=== PATIENT | female | born 1975 | race Caucasian/White ===

== ENCOUNTER 2018-07-05 23:54 | Inpatient (IN) | payer OTHER ==
--- NOTE | 2018-07-06 00:02 | EDPHY ---
H & P Time Seen by Provider: 07/06/18 00:02 HPI/ROS: HPI CHIEF COMPLAINT: Found down. HISTORY OF PRESENT ILLNESS: This is a 43-year-old female, she arrives to the emergency room by EMS after being found down at a local concert venue. Patient was in the bathroom and found down unresponsive. She had sats in the 70s. She was bagged with a nasal trumpet in place. She arrives to the emergency room minimally responsive, breathing, however upon arrival to the ER she slowly awakens. However unable to obtain history from her. Her sats are in the low 80s. She was placed on a non-rebreather. Heart rate is 109. It Is unclear exactly what happened. It Is reported by EMS that she has a history of Parkinson's like syndrome, PE. Past Medical History:Parkinson's Syndrome, PE Past Surgical History: No recent surgical history Social History: Unknown Family History: Unknown ROS REVIEW OF SYSTEMS: Limited due to patient's clinical presentation Exam Constitutional unresponsive, triage nursing summary reviewed, vital signs reviewed Eyes normal conjunctivae and sclera, EOMI, PERRLA. HENT normal inspection, atraumatic, moist mucus membranes, no epistaxis, neck supple/ no meningismus, no raccoon eyes. Respiratory clear to auscultation bilaterally, normal breath sounds, no respiratory distress, no wheezing. Cardiovascular rate normal, regular rhythm, no murmur, no edema, distal pulses normal. Gastrointestinal soft, non-tender, no rebound, no guarding, normal bowel sounds, no distension, no pulsatile mass. Genitourinary no CVA tenderness. Musculoskeletal no midline vertebral tenderness, full range of motion, no calf swelling, no tenderness of extremities, no meningismus, good pulses, neurovascularly intact. Skin pink, warm, & dry, no rash, skin atraumatic. Neurologic unresponsive, breathing. Differential Diagnosis: Includes but is not limited to in a particular order pulmonary embolism, intracranial bleed, CVA, seizure, drug intoxication, alcohol intoxication, cardiac arrhythmia Medical Decision Making: Plan for this patient IV establishment IV fluid bolus , CT scan head without contrast CT cervical spine without contrast, basic labs, EKG, troponin. Re-evaluation: EKG interpretation by me on record in [facility] system. Impression time of EKG 0008: Sinus tachycardia rate of 106, no signs of acute ischemia, no signs of WPW or Brugada. QTc interval noted 442. Chest x-ray one view. No evidence of focal pneumonia. No evidence of pneumothorax image interpreted by myself. Trop 0.00 Patient's D-dimer 15. Patient's lactic acid is 5. Given the elevation D-dimer and found down it is possible she had a PE leading to syncope. Will proceed with CT angiogram of the chest. CT scan head without contrast CT cervical spine without contrast faxed me by direct Radiology shows no acute intracranial abnormality the CT cervical spine is motion artifact limited however no gross acute cervical spine abnormality Plan for CT scan angiogram of the chest for positive D-dimer and syncope. Plan for CT scan abdomen pelvis with IV contrast of the abdomen due to bloody stool. 1:02 a.m. patient started developing bloody diarrhea. Patient has been typed and screen. IV Protonix ordered. 3rd L of IV fluid. Will admit to the ICU. CT angiogram of the chest and abdomen pelvis with IV contrast obtained. This shows a pulmonary embolus thrombus in the right lower segment pulmonary arteries no CT evidence of right heart strain No acute abnormality within the abdomen and pelvis No acute fracture dislocation There is a fluid-filled rectum and sigmoid colon which can be seen with infectious or inflammatory etiology enteritis Neck can be mom and circumferential wall prominence of the colon which may be exaggerated due to underdistention I spoke with the hospitalist service at 2:[address] David, he agrees to admit the patient to the ICU for GI bleed, hypertension, PE. The patient has a PE on the CT angiogram of the chest. We are unable to intake coagulated this time due to the bright red blood per rectum. Additionally will consult Gastroenterology IV Protonix as been ordered Type and screen. Lactic acid is trended down. 2:17 a.m. patient's blood pressure improved. Plan for hospital admission to the ICU for close monitoring. It is still somewhat unclear what happened there she was found down unresponsive. Brought to the emergency room noted be hypotensive tachycardic this has improved. Also found to have bright red blood per rectum watery bright red blood. Dr. Arenas consulted. Agrees on current plan. Will admit to ICU. Will consult. Critical Care: Total Critical Care Time Spent Managing this Patient: 85 Minutes. This time was spent Exclusively with this patient. This Care was exclusive of procedures. The Organ System/life at risk was pulmonary embolism, GI bleed, hypotension This Patient was in Critical Condition because pulmonary embolism, GI bleed, hypotension Source: Patient, EMS Constitutional: Initial Vital Signs Temperature (C) 36.6 C 07/06/18 00:00 Heart Rate 115 H 07/06/18 00:00 Respiratory Rate 16 07/06/18 00:00 Blood Pressure 76/54 L 07/06/18 00:00 O2 Sat (%) 81 L 07/06/18 00:00 O2 Delivery Mode Nasal Cannula O2 (L/minute) 2 Allergies/Adverse Reactions: No Known Allergies Allergy (Unverified 07/06/18 00:07) Home Medications: Medication Instructions Recorded Albuterol Sulfate [Albuterol 1 - 2 puffs IH Q4 PRN 07/06/18 Sulfate Hfa] Fluticasone Nasal [Flonase Nasal 1 sprays NASAL DAILY PRN 07/06/18 [place] (RX)] Propranolol HCl [Propranolol HCl 180 mg PO DAILY 07/06/18 ER] clonazePAM [Clonazepam] 2 mg PO BID 07/06/18 Medical Decision Making - Data Points Laboratory Results: Laboratory Results 07/06/18 01:45 07/06/18 00:00 07/06/18 00:00 Smear Review By Serafin OLIVEIRA MD Medications Given: Acetaminophen (Tylenol) 650 mg PO Q4HRS PRN PRN Reason: Pain, Mild/Fever, Can Take PO Stop: 01/02/19 02:15 Last Admin: 07/06/18 21:06 Dose: 650 mg Clonazepam (Klonopin) 2 mg PO BID [facility] Stop: 01/03/19 11:29 Last Admin: 07/07/18 12:05 Dose: 2 mg Heparin Sodium (Porcine) (Heparin 50 Units/Ml (Premix)) 500 mls @ 0 mls/hr IV CONT BERNARDO; Per Protocol PRN Reason: Protocol Stop: 01/02/19 16:14 Last Admin: 07/07/18 09:47 Dose: 500 mls Pantoprazole Sodium (Protonix) 40 mg IVP BID BERNARDO Stop: 01/02/19 08:59 Last Admin: 07/07/18 08:10 Dose: 40 mg Propranolol HCl (Inderal La) 180 mg PO DAILY [facility] Stop: 01/03/19 11:14 Last Admin: 07/07/18 12:05 Dose: 180 mg Vancomycin HCl (Vancomycin Oral Liquid) 125 mg PO QID BERNARDO PRN Reason: Protocol Stop: 08/05/18 15:59 Last Admin: 07/07/18 12:05 Dose: 125 mg Discontinued Medications Heparin Sodium (Porcine) (Heparin Injection) 0 unit IVP ONCE ONE Stop: 07/06/18 16:08 Last Admin: 07/06/18 16:52 Dose: 3,400 units Sodium Chloride (Ns) 1,000 mls @ 0 mls/hr IV EDNOW ONE; Wide Open PRN Reason: Protocol Stop: 07/06/18 00:01 Last Admin: 07/06/18 00:00 Dose: 1,000 mls Sodium Chloride (Ns) 1,000 mls @ 0 mls/hr IV ONCE ONE PRN Reason: Wide Open Stop: 07/06/18 00:32 Last Admin: 07/06/18 00:32 Dose: 1,000 mls Sodium Chloride (Ns) 1,000 mls @ 0 mls/hr IV ONCE ONE PRN Reason: Wide Open Stop: 07/06/18 01:02 Last Admin: 07/06/18 01:15 Dose: 1,000 mls Lactated Ringer's (Lr) 1,000 mls @ 125 mls/hr IV CONT BERNARDO Stop: 01/02/19 03:29 Last Admin: 07/06/18 12:19 Dose: 1,000 mls Ondansetron HCl (Zofran) 4 mg IVP EDNOW ONE Stop: 07/06/18 02:05 Last Admin: 07/06/18 02:07 Dose: 4 mg Pantoprazole Sodium (Protonix) 80 mg IVP EDNOW ONE Stop: 07/06/18 01:02 Last Admin: 07/06/18 01:20 Dose: 80 mg Potassium Chloride (Klor-Con) 20 meq PO ONCE ONE Stop: 07/07/18 07:08 Last Admin: 07/07/18 08:09 Dose: 20 meq Point of Care Test Results: Chemistry 07/06/18 07/06/18 00:08 00:07 POC Glucose 160 mg/dL H mg/dL (70-100) POC Troponin I 0.00 ng/mL ng/mL (0.00-0.08) Departure - Departure Disposition: [facility] Acute Clinical Impression: Elevated lipase Hypotension Qualifiers: Hypotension type: unspecified hypotension type Qualified Code(s): I95.9 - Hypotension, unspecified Pulmonary emboli Qualifiers: Pulmonary embolism type: unspecified Chronicity: acute Acute cor pulmonale presence: without acute cor pulmonale Qualified Code(s): I26.99 - Other pulmonary embolism without acute cor pulmonale GIB (gastrointestinal bleeding) Qualifiers: GI bleed type/associated pathology: melena Qualified Code(s): K92.1 - Melena Condition: Critical
[2018-07-06] MEDS ORDERED: NS 1,000 ML IV ONE ×3 (00:31→01:01)
[2018-07-06 00:32] LABS: INR 1.06 (0.83-1.16); PROTIME(PATIENT) 13.4 SEC (12.0-15.0)
[2018-07-06 00:37] LABS: PLATELET COUNT 223 10^3/uL (150-400)
[2018-07-06] MEDS ORDERED: IOPAMIDOL (ISOVUE 370) 100 ML BTL IV ONE ×2 (00:55→01:19)
[2018-07-06] MEDS ORDERED: PANTOPRAZOLE SODIUM 40 MG VIAL IVP ONE (01:01)
[2018-07-06] MEDS ORDERED: ONDANSETRON 4 MG/2 ML VIAL IVP ONE (02:04)
[2018-07-06 02:05] LABS: PLATELET COUNT 139 10^3/uL (150-400)
[2018-07-06] MEDS ORDERED: ONDANSETRON 4 MG/2 ML VIAL ONE (02:05)
[2018-07-06] MEDS ORDERED: ONDANSETRON DISINTEGRATING 4 MG TAB PO PRN (02:16)
[2018-07-06] MEDS ORDERED: ONDANSETRON 4 MG/2 ML VIAL IVP PRN (02:16)
--- NOTE | 2018-07-06 03:05 | PDGENHP ---
History and Physical - Chief Complaint Found down - History of Present Illness 43 yo F w/ hx of movement d/o NOS and PE in 2014 presents via EMS after being found down. The patient is able to tell me she was at a concert for her daughter and she recalls not feeling well. She is quite confused at the moment and unable to provide additional details. She does not recall how she arrived at the ER. Per report, she was found down in the bathroom at the concert venue with O2 sats in the 70s. She was brought into the ED minimally responsive being bagged by EMS with a nasal trumpet in place. She was also hypotensive on arrival. With 3 L IVF her blood pressure and respiratory status improved. She was noted to have moderate amount of bloody diarrhea in the ED. During my evaluation the patient is confused but with HR in the 80s, O2 sats in the high 90s on 2 L O2, and with normal BP. She is experiencing diffuse abdominal pain and nausea. Her imaging is notable for segmental PE in the RLL. Additional CT evaluation of head, C-spine, as well as abdomen and pelvis are mostly unremarkable aside from fluid filled rectum and sigmoid colon. I discussed the case with ED physician Dr. Riley; patient will be admitted to the ICU. History Information - Allergies/Home Medication List Allergies/Adverse Reactions: No Known Allergies Allergy (Unverified 07/06/18 00:07) Home Medications: Unobtainable 07/06/18 [Last Taken Unknown] I have personally reviewed and updated: family history, medical history - Past Medical History pulmonary embolism Additional medical history: Movement d/o NOS - Surgical History Additional surgical history: Endometrial ablation. Hemorrhoid surgery - Family History Positive for: cancer - Social History Smoking Status: Never smoked Review of Systems Review of Systems: ROS: 10pt was reviewed & negative except for what was stated in HPI & below Physical Exam Physical Exam: Temp Pulse Resp BP Pulse Ox 36.4 C 78 18 112/81 H 99 07/06/18 02:22 07/06/18 02:22 07/06/18 02:22 07/06/18 02:22 07/06/18 02:22 O2 (L/minute) 2 Constitutional: obese, uncomfortable Eyes: PERRL, EOMI Ears, Nose, Mouth, Throat: moist mucous membranes, no oral mucosal ulcers Cardiovascular: regular rate and rhythym, no murmur, rub, or gallop Respiratory: no respiratory distress, clear to auscultation Gastrointestinal: tenderness (Diffuse), No guarding, No rebound, No distension Skin: warm, normal color Neurologic: CN II-XII Intact, other (A&Ox2) Psychiatric: encephalopathic, poor memory Lab Data & Imaging Review 07/06/18 01:45 07/06/18 00:00 WBC 12.38 10^3/uL (3.80-9.50) H 07/06/18 01:45 RBC 3.93 10^6/uL (4.18-5.33) L 07/06/18 01:45 Hgb 12.5 g/dL (12.6-16.3) L 07/06/18 01:45 Hct 36.2 % (38.0-47.0) L 07/06/18 01:45 MCV 92.1 fL (81.5-99.8) 07/06/18 01:45 MCH 31.8 pg (27.9-34.1) 07/06/18 01:45 MCHC 34.5 g/dL (32.4-36.7) 07/06/18 01:45 RDW 13.5 % (11.5-15.2) 07/06/18 01:45 Plt Count 139 10^3/uL (150-400) L 07/06/18 01:45 MPV 12.1 fL (8.7-11.7) H 07/06/18 01:45 Neut % (Auto) 71.7 % (39.3-74.2) 07/06/18 01:45 Lymph % (Auto) 24.6 % (15.0-45.0) 07/06/18 01:45 [place] % (Auto) 2.5 % (4.5-13.0) L 07/06/18 01:45 Eos % (Auto) 0.3 % (0.6-7.6) L 07/06/18 01:45 Baso % (Auto) 0.2 % (0.3-1.7) L 07/06/18 01:45 Nucleat RBC Rel Count 0.4 % (0.0-0.2) H 07/06/18 01:45 Absolute Neuts (auto) 8.88 10^3/uL (1.70-6.50) H 07/06/18 01:45 Absolute Lymphs (auto) 3.04 10^3/uL (1.00-3.00) H 07/06/18 01:45 Absolute Monos (auto) 0.31 10^3/uL (0.30-0.80) 07/06/18 01:45 Absolute Eos (auto) 0.04 10^3/uL (0.03-0.40) 07/06/18 01:45 Absolute Basos (auto) 0.02 10^3/uL (0.02-0.10) 07/06/18 01:45 Absolute Nucleated RBC 0.05 10^3/uL (0-0.01) H 07/06/18 01:45 Immature Gran % 0.7 % (0.0-1.1) 07/06/18 01:45 Seg Neutrophils % 22.9 % 07/06/18 00:00 Band Neutrophils % 0.0 % 07/06/18 00:00 Lymphocytes % 72.9 % 07/06/18 00:00 Monocytes % 3.1 % 07/06/18 00:00 Eosinophils % 0.0 % 07/06/18 00:00 Basophils % 0.0 % 07/06/18 00:00 Metamyelocytes % 1.1 % 07/06/18 00:00 Myelocytes % 0.0 % 07/06/18 00:00 Promyelocytes % 0.0 % 07/06/18 00:00 Blast Cells % 0.0 % 07/06/18 00:00 Immature Gran # 0.09 10^3/uL (0.00-0.10) 07/06/18 01:45 Absolute Seg Neuts 2.31 10^3/uL (1.70-6.50) 07/06/18 00:00 Absolute Band Neuts 0.00 10^3/uL (0.00-0.70) 07/06/18 00:00 Absolute Lymphocytes 7.36 10^3/uL (1.00-3.00) H 07/06/18 00:00 Absolute Monocytes 0.31 10^3/uL (0.30-0.80) 07/06/18 00:00 Absolute Eosinophils 0.00 10^3/uL (0.03-0.40) L 07/06/18 00:00 Absolute Basophils 0.00 10^3/uL (0.02-0.10) L 07/06/18 00:00 Absolute Metamyelocyte 0.11 10^3/mL (0.00-0.00) H 07/06/18 00:00 Absolute Myelocytes 0.00 10^3/mL (0.00-0.00) 07/06/18 00:00 Absolute Promyelocytes 0.00 10^3/uL (0.00-0.00) 07/06/18 00:00 Absolute Plasma Cells 0.00 10^3/uL (0.00-0.00) 07/06/18 00:00 Nucleated RBCs 0 /100 WBC (0-0) 07/06/18 00:00 Absolute Blast Cells 0.00 10^3/uL (0.00-0.00) 07/06/18 00:00 Plasma Cells % 0.0 % 07/06/18 00:00 Smudge Cells 1+ H 07/06/18 00:00 Platelet Estimate ADEQUATE (ADEQ) 07/06/18 00:00 Polychromasia 1+ H 07/06/18 00:00 Echinocytes 1+ H 07/06/18 00:00 PT 13.4 SEC (12.0-15.0) 07/06/18 00:00 INR 1.06 (0.83-1.16) 07/06/18 00:00 APTT 26.2 SEC (23.0-38.0) 07/06/18 00:00 D-Dimer 15.49 ug/mLFEU (0.00-0.50) H 07/06/18 00:00 Puncture Site RIGHT RADIAL 07/06/18 00:50 Patient Temperature 36.0 DEGREES 07/06/18 00:50 pCO2 24 mmHg (34-38) L 07/06/18 00:50 pO2 74 mmHg (65-75) 07/06/18 00:50 Total CO2 13 mEq/L (23-27) L 07/06/18 00:50 ABG pH 7.32 (7.35-7.45) L 07/06/18 00:50 ABG HCO3 12 mEq/L (22-26) L 07/06/18 00:50 ABG O2 Saturation 94 % (92-95) 07/06/18 00:50 ABG Base Excess -12.3 mEq/L (-2.5-2.5) L 07/06/18 00:50 VBG Lactic Acid 1.6 mmol/L (0.7-2.1) 07/06/18 01:45 Total O2 Concentration 15.0 LITERS 07/06/18 00:50 Sodium 141 mEq/L (135-145) 07/06/18 00:00 Potassium 4.8 mEq/L (3.5-5.2) 07/06/18 00:00 Chloride 112 mEq/L (97-110) H 07/06/18 00:00 Carbon Dioxide 16 mEq/l (22-31) L 07/06/18 00:00 Anion Gap 13 mEq/L (6-14) 07/06/18 00:00 BUN 12 mg/dL (7-23) 07/06/18 00:00 Creatinine 0.8 mg/dL (0.6-1.0) 07/06/18 00:00 Estimated GFR > 60 07/06/18 00:00 Glucose 175 mg/dL (70-100) H 07/06/18 00:00 POC Glucose 160 mg/dL (70-100) H 07/06/18 00:08 Calcium 9.3 mg/dL (8.5-10.4) 07/06/18 00:00 Magnesium 2.3 mg/dL (1.6-2.3) 07/06/18 00:00 Total Bilirubin 0.4 mg/dL (0.1-1.4) 07/06/18 00:00 Conjugated Bilirubin 0.4 mg/dL (0.0-0.5) 07/06/18 00:00 Unconjugated Bilirubin 0.0 mg/dL (0.0-1.1) 07/06/18 00:00 AST 36 IU/L (14-46) 07/06/18 00:00 ALT 42 IU/L (9-52) 07/06/18 00:00 Alkaline Phosphatase 62 IU/L (38-126) 07/06/18 00:00 POC Troponin I 0.00 ng/mL (0.00-0.08) 07/06/18 00:07 NT-Pro-B Natriuret Pep 165 pg/mL (0-125) H 07/06/18 00:00 Total Protein 6.9 g/dL (6.3-8.2) 07/06/18 00:00 Albumin 4.2 g/dL (3.5-5.0) 07/06/18 00:00 Lipase 3515 IU/L (23-300) H 07/06/18 00:00 Beta HCG, Qual NEGATIVE 07/06/18 00:00 Stool Occult Bld Scrn POSITIVE (NEGATIVE) H 07/06/18 02:10 Ethyl Alcohol < 10 mg/dL (0-10) 07/06/18 00:32 Patient ABO/Rh A POSITIVE 07/06/18 01:09 Antibody Screen NEGATIVE 07/06/18 01:09 Imaging Review: CTPE: RLL segmental PE CT A/P: Fluid filled rectum and sigmoid colon Assessment & Plan Assessment: 43 yo F w/ hx of PE and movement d/o NOS presents after being found down and noted to have PE and GI bleed. Plan: 1. RLL segmental PE - Patient found down and noted to be hypotensive, hypoxic, and minimally responsive. Noting PE is segmental, burden is relatively small, and laboratory/imaging evidence does not point to significant R heart strain, it is difficult to say PE is entirely responsible for her presentation. She is exhibiting ongoing rectal bleeding so anticoagulation is currently contraindicated. At the moment she is hemodynamically stable and oxygenating well on 2 L O2, which is greatly improved from initial arrival. She has a prior hx of PE in 2014 treated with 1 year of warfarin therapy. - Admit to ICU - Hold off on anticoagulation awaiting GI evaluation for GI bleed - Bilateral LE U/S ordered to evaluate clot burden - TTE ordered 2. Rectal bleeding - Patient developed significant amount of bright red blood per rectum while in the ED. Her BP and HR have normalized after [address] of the abdomen and pelvis notable for fluid filled rectum and sigmoid colon. - GI consulted (Dr. Arenas), will evaluate this morning - Maintain NPO, repeat CBC at 0600 - PPI IV BID 3. Hypotension - Possibly multifactorial from PE and GI bleed. Pulmonary embolism does not seem central or large enough to cause significant hypotension. Blood pressure now normalized after 3 L IVF. - TTE ordered for further evaluation - Check Utox - Acute management as above 4. Acute metabolic encephalopathy - Patient remains encephalopathic with poor memory and concentration during my evaluation. CTH did not reveal acute findings. Patient's partner did mention that she may have had a seizure in the past, but patient denies this. - Minimize centrally acting medications as able - Check Utox 5. Elevated lipase - Lipase 3513 on admission; patient is complaining of diffuse abdominal pain and nausea. It is possible this is related to period of hypotension, although LFTs are otherwise WNL. CT did not demonstrate any clear abnormality in the pancreas. - NPO, mIVF, anti-emetics PRN - Will trend CMP on morning labs - Consider RUQ U/S if GI symptoms not improving 6. Lactic acidosis - Due to hypotension and hypovolemia, resolved with IVF. 7. Movement d/o NOS - Patient takes propranolol regularly for "Parkinson's like disorder." - Hold in setting of hypotension 8. Anxiety - Patient takes clonazepam for this. Diet - NPO Code - Full Ppx - None noting GIB and pending evaluation of LE DVTs Dispo - Admit under inpatient status I personally spent 45 minutes of critical care time evaluating patient, interpreting data, and coordinating care.
[2018-07-06] MEDS ORDERED: LR 1,000 ML IV SCH (03:30)
[2018-07-06 06:17] LABS: PLATELET COUNT 164 10^3/uL (150-400)
--- NOTE | 2018-07-06 08:14 | PDMN ---
Medical Necessity Medical necessity: Pt meets IP criteria as of 07/06/2018 per and MCG M-290 ( Pulmonary Embolism); est los > 2 mn for ongoing tx and management of RLL segmental PE, pt with confusion, hypotension and hypoxia (70% RA) on initial presentation; pt also having acute rectal bleeding and abdominal pain; requiring ICU level care, GI consultation prior to starting AC as well as close monitoring of respiratory and neuro status and H&H.
[2018-07-06] MEDS: PANTOPRAZOLE SODIUM 40 MG VIAL IVP SCH ×2 (10:01→20:37)
--- NOTE | 2018-07-06 10:42 | ECHO ---
[email or web address] [address] Main: [phone] Echocardiography Examination Transthoracic Name: WEST WEBER MR#: Study Date: 07/06/2018 Study Time: 07:13 AM Date of : 1975 Age: 43 year(s) Height: 167.6 cm (66 in.) Weight: 83.92 kg (185 lb.) BSA: 1.93 m2 Gender: Female Examination: Echo Contrast: Image Quality: Adequate Rhythm: Heart Rate: BP: 104 mmHg/79 mmHg Indication: PE/hypotensive Procedure Staff Referring Physician: Torpedo Man: Mercedes Regalado RDCS Reading Physician: Linus Lepe MD Requesting Provider: Ordering Physician: Ronni David Indication: PE/hypotensive Measurements Chambers AV/MV Label Value Normal Value Label Value Normal Value LVDd, 2D 4.7 cm (3.9cm - 5.3cm) AV PGmean 2 mmHg LVDs, 2D 3.1 cm (2.1cm - 4cm) AV Vmax 1.13 m/s IVSd, 2D 0.6 cm (0.6cm - 1.1cm) MV E Vmax 0.85 m/s LVPWd, 2D 0.7 cm MV A Vmax 0.8 m/s LVEF, BP 66 % (55% - 70%) MV E/A 1.06 LVEF, 2D 62 % (54% - 74%) MV E/E' lateral 6.5 LA Volume, BP 39 ml (22ml - 52ml) MV E/E' septal 9.6 (0.5 - 1.7) LADs, 2D 2.9 cm (2.7cm - 3.8cm) MV E' septal 0.09 m/s LAESV index, BP 20.2 ml/m2 MV E' lateral 0.13 m/s Additional Vessels MV E/E' mean 7.73 Label Value Normal Value MV E' mean 0.11 m/s AoRoot, MM 2.9 cm (2.2cm - 3.7cm) Conclusions Left Ventricle: The ejection fraction, measured by Simpsons method, is 66 %. There are no regional wall motion abnormalities. Left ventricular diastolic function parameters are normal. Patient: WEST WEBER MRN: Study Date: 07/06/2018 Page 1 of 3 07:13 AM Right Ventricle: Normal size right ventricle. Right ventricular systolic function is normal. Mitral Valve: Trivial mitral regurgitation. Aortic Valve: Aortic leaflets exhibit normal cuspal separation. Tricuspid Valve: Trivial tricuspid regurgitation. Pulmonary artery pressure normal. Overall Conclusions: There is no previous echocardiogram for comparison. Findings Left Ventricle: Left ventricle is normal in size. Normal global systolic left ventricular function. The ejection fraction, measured by Simpsons method, is 66 %. Left ventricle wall thickness is normal. There are no regional wall motion abnormalities. Left ventricular diastolic function parameters are normal. IVS: The septum is intact. Right Ventricle: Normal size right ventricle. Right ventricular systolic function is normal. Left Atrium: The left atrium is normal in size. IAS: Normal appearing atrial septum. Right Atrium: The right atrium is normal in size. Mitral Valve: Mitral valve appears structurally normal. Trivial mitral regurgitation. No mitral valve stenosis. Aortic Valve: Aortic leaflets exhibit normal cuspal separation. No aortic valve regurgitation. There is no aortic stenosis. The aortic valve is trileaflet. Tricuspid Valve: Tricuspid valve leaflets are normal in appearance and function. Trivial tricuspid regurgitation. No tricuspid valve stenosis. Pulmonary artery pressure normal. Pulmonic Valve: Pulmonic valve is poorly visualized. No pulmonic valve regurgitation is evident. There is no pulmonic valve stenosis. Aorta: The aorta is normal. The aortic root size in M-mode measures 2.9 cm. Aorta Measurements AoRoot, MM is 2.9 cm. IVC: The inferior vena cava is normal in size and course. Pericardium: Trivial anterior pericardial effusion. No pleural effusion present. Exam Details Procedure Ordered: Echo Patient: WEST WEBER MRN: Study Date: 07/06/2018 Page 2 of 3 07:13 AM Procedure Status: Routine study Image Quality: Adequate Facility Location: Cardiac Echo 1 (No Signature Object) Patient: WEST WEBER MRN: Study Date: 07/06/2018 Page 3 of 3 07:13 AM [id number]
--- NOTE | 2018-07-06 12:46 | HOSPPROG ---
Hospitalist Progress Note Assessment/Plan: 43 yo F w/ hx of PE and movement d/o NOS presents after being found down and noted to have PE and GI bleed. #GI bleed/BRBPR: Likely lower, hemodynamically stable - GI consulted, planning egd/colo tomorrow - Recheck H/H in AM unless clinical change - Check GI PCR with recent infectious sxs #RLL segmental PE: Recurrent issue. she reports RUL and LLL PE in 2014 ( previously on warfarin) - Holding on AC until above issue stabilized but given that this is recurrent PE, benefits of AC will likely outweigh risks #Syncope: C/w vasovagal response to gi bleed. #Hypotension: Vagal and blood loss. Now normotensive. Continue mIVF. #Elevated troponin: Mild, likely demand from hypotension. Recheck. #Leukocytosis: ? leukomoid reaction. Not septic. Monitor. #Acute metabolic encephalopathy: Resolved. #Elevated lipase: Clinical picture and CT now c/w pancreatitis. Unclear significance. #Anxiety: Home clonazepam. #Movement d/o NOS Diet - clears today, NPO at midnight Code - Full Ppx - SCDs Dispo - remain inpatient Subjective: Awake, alert. Remembers having urgency to have BM and feeling clammy in bathroom but nothing afterwards. Mild abdominal pain. No fevers. Still having intermittent blood in stools. Objective: Vital Signs Temp Pulse Resp BP Pulse Ox 36.7 C 88 14 126/83 H 95 07/06/18 12:00 07/06/18 12:00 07/06/18 12:00 07/06/18 12:00 07/06/18 12:00 Laboratory Results 07/06/18 06:00 07/06/18 06:00 07/05/18 07/06/18 07/07/18 05:59 05:59 05:59 Intake Total 3315 Output Total 100 Balance 3215 PT 13.4 SEC (12.0-15.0) 07/06/18 00:00 INR 1.06 (0.83-1.16) 07/06/18 00:00 - Physical Exam Constitutional: no apparent distress, appears nourished, not in pain Eyes: PERRL, anicteric sclera, EOMI Ears, Nose, Mouth, Throat: moist mucous membranes, hearing normal, ears appear normal, no oral mucosal ulcers Cardiovascular: regular rate and rhythym, no murmur, rub, or gallop, No edema Respiratory: no respiratory distress, no rales or rhonchi, clear to auscultation Gastrointestinal: normoactive bowel sounds, soft, non-tender abdomen, no palpable masses Genitourinary: no bladder fullness, no bladder tenderness, no renal bruits Skin: no rashes or abrasions, no fluctuance, no induration Musculoskeletal: full muscle strength, no muscle tenderness, normal joint ROM Neurologic: AAOx3 Psychiatric: interacting appropriately ICD10 Worksheet Patient Problems: Problems Problem Status Onset Elevated lipase Acute GIB (gastrointestinal bleeding) Acute Hypotension Acute Pulmonary emboli Acute
--- NOTE | 2018-07-06 16:01 | ASMTCMCOM ---
CM Note CM Note Notes: Reviewed chart, pt admitted to hospital [place]. Pt seems to be having rectal bleeding, plan is for EGD/colonoscopy tommorrow. Pt lives at home with in [place], no theraies ordered, CM w/f. DC Plan: TBD Date Signed: 07/06/2018 04:01 PM Electronically Signed By:Donita Cannon RN
--- NOTE | 2018-07-06 16:01 | SOAPPROG ---
SOAP Progress Note Assessment/Plan: Assessment:Plan: see full dictated consult rom earlier today pt now with positive c diff pulm embolus needing anti-coagulation spoke with GUANAKITO Shabazz for heparin will hold on colon prep given c diff Victor Manuel Arenas MD [phone] 07/06/18 15:56 Objective: Vital Signs Temp Pulse Resp BP Pulse Ox 36.7 C 88 14 108/70 95 07/06/18 12:00 07/06/18 14:00 07/06/18 14:00 07/06/18 14:00 07/06/18 14:00 Microbiology 07/06/18 13:00 Gastrointestinal Tract Panel (PCR) - Final Stool Clostridium Difficile Detected Laboratory Results 07/06/18 06:00 07/06/18 06:00 07/05/18 07/06/18 07/07/18 05:59 05:59 05:59 Intake Total 3315 Output Total 100 Balance 3215 PT 13.4 SEC (12.0-15.0) 07/06/18 00:00 INR 1.06 (0.83-1.16) 07/06/18 00:00 ICD10 Worksheet Patient Problems: Problems Problem Status Onset Elevated lipase Acute GIB (gastrointestinal bleeding) Acute Hypotension Acute Pulmonary emboli Acute
[2018-07-06] MEDS ORDERED: HEPARIN 10,000 UNIT/10 ML MDV (1,000 UNIT/ML) IVP ONE (16:07)
[2018-07-06] MEDS ORDERED: HEPARIN 10,000 UNIT/10 ML MDV (1,000 UNIT/ML) IVP PRN (16:07)
--- NOTE | 2018-07-06 16:19 | GCON ---
[f rep st] CONSULTATION DATE OF CONSULTATION: 07/06/2018 REFERRING PHYSICIAN: Caden Santoyo MD REASON FOR CONSULTATION: Episode of syncope, hematochezia. HPI: I have been asked by Dr. Santoyo to see the patient for consultation of chief complaint of hematochezia. She is a 43-year-old female who has a past medical history significant for pulmonary embolism, possible Parkinson's syndrome. She was at a concert with her daughter when she went to the bathroom and had a syncopal episode, she was found down, with sats in her 70s and brought to the emergency room by EMT. She was noted to have episode of hematochezia in the ER. Other H and H have been essentially stable after IV hydration. She states that she has had a long history of intestinal issues dating back over 6 years with alternating diarrhea and constipation and never really any normal stools. She has had a previous colonoscopy that did not reveal any significant abnormality by her report. There has been no significant weight loss. These symptoms do not awaken her from sleep. She has had near syncopal episodes on the toilet in the recent past. She does have a history of pulmonary embolus and was noted to have an abnormality on the imaging study, which is a new pulmonary emboli. It was not significant enough to account for any hypertension. She is now admitted with the above, and I suspect an ischemic colitis from her hypertension. I am called to help and evaluate in that regard. PAST MEDICAL HISTORY: Pulmonary embolus, possible Parkinson's. PAST SURGICAL HISTORY: Colonoscopy. SOCIAL HISTORY: She smokes a quarter pack cigarettes a day. She drinks alcohol infrequently. FAMILY HISTORY: No GI malignancies to her knowledge. Although her mother had thyroid cancer at young age. MEDICATIONS: Zofran, Protonix, and Tylenol. ALLERGIES: None noted. REVIEW OF SYSTEMS: Prior to this episode, she had GI symptoms as noted above. She has no chest pain, palpitations, diaphoresis, fevers, chills, sweats. No significant weight loss. A complete review of systems are performed and are negative other than noted in the HPI. PHYSICAL EXAM: GENERAL: Well-developed, well-nourished female sitting in her bed, in no acute distress. VITAL SIGNS: Her temperature is 36.6. Her blood pressure is 116/80, her pulse is 91, her respiratory rate is 15. She is 95% sat on room air. EYES: Anicteric. BELLE, EOMI. MOUTH: No lesions. NECK: Supple. Full range of motion. No JVD. BACK: No spine tenderness. No CVA tenderness. LUNGS: Clear. CARDIAC: S1, S2. Regular rate and rhythm. I do not appreciate any murmurs, rubs or gallops. ABDOMEN: Bowel sounds are normal pitch and frequency. Soft with no significant tenderness. No rebound. No guarding. No hepatosplenomegaly. EXTREMITIES: No cyanosis, clubbing, or edema. NEUROLOGIC: She is alert, oriented x3. Cranial nerves intact. She is nonfocal. SKIN: No stigmata of advanced liver disease. No rashes. LABORATORY DATA: On admission, WBC 10.1, hemoglobin 16.3, hematocrit 49.5, platelet count 223. After hydration, hemoglobin dropped to 12.5, and then this morning's labs, hemoglobin was 14.2, hematocrit 41.8. WBC 22.26, platelet count 164. From approximately midnight, Pro time 13.4, INR 1.06, PTT 26.2. From this morning at 6:00 a.m., sodium 140, potassium 4.1, chloride 111, bicarb 17, BUN 12, creatinine 0.7, glucose 130, calcium 7.9, bilirubin 0.4, AST 26, ALT 29, alkaline phosphatase 44. From midnight, lipase 3515, albumin 4.2, total protein 6.9. Alcohol was less than 10%. Abdominal CT scan performed at 1 :00 a.m. this morning revealed segmental and subsegmental pulmonary emboli in the right lower lobe with diffuse peribronchial thickening is present with scattered mucus plugging and mild basilar atelectasis. There is mild wall thickening in the stomach and small bowel and colon with fluid throughout the normal caliber small bowel and colon. Trace mesenteric stranding is suspected adjacent to the rectosigmoid colon. Chest thorax, CTA, segmental and subsegmental right lower pulmonary emboli. Bronchiectasis with scattered mucus plugging, mild diffuse small bowel thickening throughout the colon and small bowel. Head CTs performed at midnight: No acute intracranial findings. ASSESSMENT: 1. Hematochezia, likely related to ischemic colitis with syncopal episode. 2. Alternating diarrhea and constipation for a number of years. 3. Abnormal imaging. 4. Possibility of new pulmonary embolism. 5. History of pulmonary embolisms in the past. RECOMMENDATIONS: 1. Esophagogastroduodenoscopy and colonoscopy evaluation of above symptoms. 2. See with hemoglobins and hematocrits. I do not think she is having significant blood loss. I suspect she has ischemic colitis from her hypertension episode. 3. Evaluation of possible pulmonary embolus per hospitalist prop and scenery maker. 4. Follow up with urine toxicology screen. 5. Further recommendations to follow results above and clinical course. ADDENDUM: positive for c diff - start oral vancomycin 125 mg po qid. Postpone colonoscopy and EGD. I think she still needs them in near future given her symptoms and recurrent PE. Thank you for allowing me to participate in the patient's healthcare. Do not hesitate to call me with any questions. Sincerely, /[id number]/MODL MTDMaxime
[2018-07-06] MEDS: VANCOMYCIN 125 MG/2.5 ML UDL PO SCH ×2 (16:43→20:37)
[2018-07-06] MEDS: HEPARIN/DEXTROSE 500 ML IV SCH (16:53)
[2018-07-06] MEDS ORDERED: PEG 3350/NA SULF,BICARB,CL/KCL (GAVILYTE-G) 4000 ML BTL PO ONE (17:00)
[2018-07-06 17:23] LABS: PLATELET COUNT 151 10^3/uL (150-400)
[2018-07-06 17:37] LABS: INR 1.18 (0.83-1.16); PROTIME(PATIENT) 14.5 SEC (12.0-15.0)
[2018-07-06] MEDS: ACETAMINOPHEN 325 MG TAB PO PRN (21:06)
--- NOTE | 2018-07-06 23:00 | GCON ---
[f rep st] CONSULTATION PULMONOLOGY/CRITICAL CARE CONSULTATION DATE OF CONSULTATION: 07/06/2018 REASON FOR CONSULTATION: Pulmonary embolism, bloody diarrhea, C difficile positive. HISTORY OF PRESENT ILLNESS: The patient is a pleasant 43-year-old woman visiting this area from [facility]. She has a history of pulmonary embolism. She was hospitalized at [facility] in 2012 with [id number] volume PE, left lower lobe greater than right lower lobe and right upper lobe. She was anticoagulated with Coumadin for a year. She has been off anticoagulation since 2013. She was on control at the time of her initial PE. A month ago, she was in the emergency depa rtment with pleurisy, also at [place]. CT angiogram of the chest was negative for any evidence of pu lmonary embolic disease. The patient was admitted yesterday with bloody diarrhea. She was with her daughter at a concert, was in the bathroom, and had a syncopal event associated with abdominal pain and bloody diarrhea. She w as transported to the emergency department. Saturations were in the 70s. She was initially poorly r esponsive and hypotensive. She was given 3 L of fluid with improvement in her clinical status as wel l as her pulmonary status. She did have further bloody diarrhea in the emergency department. She wa s initially confused but has subsequently become well oriented. She had multiple imaging. Abdominal CT scan was unremarkable except for fluid in the rectum and sigm oid colon, perhaps some mild stranding in one area of the colon. CT angiogram was positive for segme ntal pulmonary embolic disease in the right lower lobe. Other radiologic studies were negative. Low er extremity venous Doppler ultrasounds showed no clot in either leg. She was admitted to the intens katarina care unit for further care. Gastroenterology was consulted and was initially planning on colonos copy tomorrow. However, stool sample has come back positive for C difficile. She is being started o n oral vancomycin. Colonoscopy is now on hold. The patient has no pleurisy. She is feeling better. She is not hypotensive. She is well saturated on room air, breathing comfortably. She complains of abdominal discomfort. She has had several smal l bowel movements, somewhat bloody. PAST MEDICAL HISTORY: Remarkable for a tremor, perhaps early Parkinson's, controlled with propranolo l. She has some anxiety and takes clonazepam twice daily. Mild asthma for which she uses albuterol on an as-needed basis and fluticasone nasal spray p.r.n. Other past history is as outlined above. ALLERGIES: No known drug allergies. SOCIAL HISTORY: The patient is . She has a 14-year-old daughter who spends half the time wi th her in [place] and half the time with her ex- in [place]. She thus does a lot of commuting [place]. She has smoked cigarettes for about 25 years, recently quit. She h as no history of COPD. Significant alcohol is denied. FAMILY HISTORY: Negative for known thromboembolic disease. REVIEW OF SYSTEMS: A 10-point review of systems is negative except as mentioned above. PHYSICAL EXAMINATION: GENERAL: Pleasant woman who is resting comfortably in bed. VITAL SIGNS: Blo od pressure is 110/70, heart rate 88 with sinus rhythm on the monitor. Respiratory rate is 14. On r oom air, saturations are 95%. She is afebrile. NECK: Unremarkable for lymphadenopathy or thyromega ly. There is no jugular venous distention. HEENT: Mucous membranes are moist. CHEST: Clear bilat erally. Breath sounds are normal. There is no rub, no wheezes. HEART: Regular in rate and rhythm without significant murmurs or gallops. P2 appears normal. ABDOMEN: Slightly distended, mildly ten margarito. Bowel sounds are present. EXTREMITIES: Unremarkable for edema, cords, or tenderness. NEUROLO GIC: Within normal limits. No significant tremor present at the current time. IMAGING STUDIES: Radiologic studies are as outlined above, with CT angiogram positive for segmental clot in the right lower lobe. Bilateral lower extremity venous Doppler ultrasounds are negative. CT of the abdomen is as outlined above. LABORATORY STUDIES: White blood cell count is 22,000, hematocrit 41.8 (down from 49.5 on admission), platelets are 164,000. PT and PTT were normal on admission. D-dimer was elevated at 15. Arterial blood gas initially showed a pH of 7.32, pCO2 of 24, and pO2 of 74 on 15 L. Initial venous lactate w as 5, followup 1.6. Sodium is 140, potassium 4.1, CO2 17 with a negative anion gap. BUN is 12 with a creatinine of 0.7. Glucose is 130. Liver function studies are normal. BNP is negative. Albumin 3.0. Lipase 3515. Beta HCG was negative. Albumin 4.2. C difficile was positive. Blood alcohol le ss than 10. Stool for occult blood positive. ASSESSMENT: 1. Pulmonary embolism. The patient clearly has a recurrent pulmonary embolism. Her initial episode was in 2012, significant, and she was anticoagulated for a year. A CT angiogram of the chest approx imately 3 weeks ago was negative for pulmonary embolic disease. She now has clear emboli related to the right lower lobe. Anticoagulation is indicated. However, she has presented with gastrointestina l bleeding with some intermittent blood per rectum. This would appear to be secondary to Clostridium difficile colitis (please see the comments below). I have discussed anticoagulation with Dr. Arenas . He feels there are no contraindications to initiating heparin intravenously. If she has significa nt increased bleeding, then we will have to stop the heparin and colonoscopy will be needed. It is r eassuring that her hematocrit has stayed fairly high (41) since admission despite some gastrointestin al blood loss and vigorous rehydration. 2. Bright red blood per rectum. Secondary to Clostridium difficile colitis, most likely. Gastroent erology is involved. 3. Clostridium difficile colitis. She did receive antibiotics about a month ago. She has had chron ic gastrointestinal symptoms with some intermittent blood per rectum noted. She also has a distant h istory of hemorrhoids. Following antibiotics given to her about a month ago, she has had accelerated gastrointestinal symptoms with increased pain, bloating, and increased diarrhea and blood. Her Clos tridium difficile may have started at that time. 4. Metabolic: No significant issues identified. 5. History of anxiety and tremor. Beta blockers and clonazepam probably should be restarted per her home regimen. 6. Gastrointestinal prophylaxis. She is on pantoprazole twice a day for now. RECOMMENDATIONS: Oral vancomycin has been ordered. I have discussed her case with Gastroenterology. Planned colonoscopy will be put on hold for now in light of her positive C difficile. Heparin will be initiated via weight-based protocol. I will start with 1/2 of the usual bolus prior to starting the drip. Unfractionated heparin will be followed per protocol. Hypercoagulability panel will be or dered and drawn prior to initiation of heparin. CBC and laboratory will be followed. Further plans and recommendations will be made based on her progress over the next 12 to 24 hours. One hour of critical care time was spent directly with the patient. Discussed with Gastroenterology, hospitalist, nursing, imaging department at [facility]. Further records from her 2013 admissi on to [place] will be requested. Issues were discussed with the patient as well. /[id number]/MODL
[2018-07-07] MEDS: VANCOMYCIN 125 MG/2.5 ML UDL PO SCH ×4 (05:21→21:23)
[2018-07-07] MEDS ORDERED: POTASSIUM CL 20 MEQ TAB PO ONE (07:07)
[2018-07-07] MEDS: PANTOPRAZOLE SODIUM 40 MG VIAL IVP SCH (08:10)
[2018-07-07] MEDS: HEPARIN/DEXTROSE 500 ML IV SCH (09:47)
[2018-07-07] MEDS ORDERED: PROTOCOL POTASSIUM 1 DOSE MISC PRN (10:42)
--- NOTE | 2018-07-07 10:53 | PDINTPN ---
Animal Shelter Clerk Progress Note Assessment/Plan: Assessment/plan: * Acute pulmonary embolus-2nd episode 1st occurring in 2012. -continue heparin -likely will require long-term anticoagulation -hypercoagulable workup pending * Clostridium difficile * GI bleed * History of anxiety and tremor * VT prophylaxis * Stress ulcer prophylaxis * Nutrition-will start clear liquids today Subjective: Comfortable. Pain well tolerated. Objective: Vital Signs Temp Pulse Resp BP Pulse Ox 36.9 C 81 14 111/68 96 07/07/18 08:00 07/07/18 10:00 07/07/18 10:00 07/07/18 10:00 07/07/18 10:00 Microbiology 07/06/18 13:00 Gastrointestinal Tract Panel (PCR) - Final Stool Clostridium Difficile Detected Laboratory Results 07/07/18 05:20 07/07/18 05:20 07/06/18 07/07/18 07/08/18 05:59 05:59 05:59 Intake Total 3315 3520 Output Total 100 Balance 3215 3520 PT 14.5 SEC (12.0-15.0) 07/06/18 16:35 INR 1.18 (0.83-1.16) H 07/06/18 16:35 - Time Spent With Patient Time Spent With Patient: 35 min of time spent with patient, 1/2 involved coordination of care or counseling. Case discussed with Nursing and hospitalist. Physical Exam - Physical Exam General Appearance: WD/WN, alert, no apparent distress EENT: PERRL/EOMI, pharynx normal Neck: non-tender, supple Respiratory: chest non-tender, lungs clear, normal breath sounds Cardiac/Chest: normal peripheral pulses, regular rate, rhythm Peripheral Pulses: 2+: carotid (R), carotid (L), femoral (R), femoral (L), dorsalis-pedis (R), dorsalis-pedis (L) Abdomen: normal bowel sounds, non-tender, soft Pelvic Exam: deferred Rectal: deferred Skin: normal color, warm/dry Extremities: normal range of motion, non-tender, normal inspection, normal capillary refill Neuro/Psych: no motor/sensory deficits, alert, normal mood/affect, oriented x 3 ICD10 Worksheet Patient Problems: Problems Problem Status Onset Elevated lipase Acute GIB (gastrointestinal bleeding) Acute Hypotension Acute Pulmonary emboli Acute
--- NOTE | 2018-07-07 11:07 | HOSPPROG ---
Hospitalist Progress Note Assessment/Plan: 43 yo F w/ hx of PE and movement d/o NOS [place] [employer] in setting of diarrhea. Found to have PE. #C diff colitis: cont po vanc #GIB: likely 2/2 above. Discussed with GI, Dr. Arenas, who also considered ischemic colitis. - cont to trend h&h - if e/o ongoing blood loss / active bleeding, will reconsider scope, but defer for now as suspect all related to c diff - outpt scope if no indication for urgent intervention here #RLL segmental PE: Hemodynamically stable today, no hypoxemia. This is recurrent. Prior PE in 2014 while on OCP, anticoagulated x1 yr. - cont heparin drip, transition to eliquis in am if no ongoing bleeding #Syncope: c/w vasovagal response to gi bleed vs PE #Hypotension: Vagal and blood loss. Now normotensive. #Elevated troponin: Mild, likely demand from hypotension. Recheck was nl. #Leukocytosis: likely 2/2 c diff, wbc's trending down #Acute metabolic encephalopathy: Resolved. #Elevated lipase: likely related to c diff #Anxiety: cont home clonazepam. #Tremor: cont home BB #Movement d/o NOS Diet - cont clears, advance as tolerated Code - Full Ppx - SCDs, pharm c/i with GIB Dispo - cont inpt, transfer to PCU Subjective: Pt doing ok. Denies CP or SOB. Still having diarrhea with some blood tinged stool. No fevers/chills. Tolerating clears. No N/V, mild abdominal discomfort. Objective: Vital Signs Temp Pulse Resp BP Pulse Ox 36.9 C 81 14 111/68 96 07/07/18 08:00 07/07/18 10:00 07/07/18 10:00 07/07/18 10:00 07/07/18 10:00 Microbiology 07/06/18 13:00 Gastrointestinal Tract Panel (PCR) - Final Stool Clostridium Difficile Detected Laboratory Results 07/07/18 05:20 07/07/18 05:20 07/06/18 07/07/18 07/08/18 05:59 05:59 05:59 Intake Total 3315 3520 Output Total 100 Balance 3215 3520 PT 14.5 SEC (12.0-15.0) 07/06/18 16:35 INR 1.18 (0.83-1.16) H 07/06/18 16:35 - Physical Exam Constitutional: no apparent distress Eyes: PERRL Ears, Nose, Mouth, Throat: moist mucous membranes Cardiovascular: regular rate and rhythym Respiratory: no respiratory distress Gastrointestinal: normoactive bowel sounds, other (soft, mild TTP, no r/r/g) Skin: warm Musculoskeletal: full muscle strength Neurologic: AAOx3 Psychiatric: interacting appropriately ICD10 Worksheet Patient Problems: Problems Problem Status Onset Elevated lipase Acute GIB (gastrointestinal bleeding) Acute Hypotension Acute Pulmonary emboli Acute
[2018-07-07] MEDS: clonazePAM 1 MG TAB PO SCH ×2 (12:05→21:23)
[2018-07-07] MEDS: PROPRANOLOL SR 60 MG CAP PO SCH (12:05)
--- NOTE | 2018-07-07 14:26 | SOAPPROG ---
MERY Progress Note Assessment/Plan: Assessment:Plan: see full dictated consult rom earlier today pt now with positive c diff pulm embolus needing anti-coagulation spoke with Dr Araya, OK for heparin will hold on colon prep given c diff Victor Manuel Arenas MD [phone] 07/06/18 15:56 07/07/18 14:23 1) C diff - on oral vanco 125 qid 2) Abdo pain - less today, I suspect her LUQ pain was from ischemic colitis 3) hematochezia - expect some given c diff and prob ischemic colitis - follow Hb /HCt later today. If sig drop I may hold heparin and consider scope 4) anticoagulation - OK for heparin for now. no long acting agent today. IF Hb stable then maybe start tomorrow 5) scopes - will need colonoscopy/egd but if stable this can be done as outpt. 6) Pulm Embolus - will prob need mcc anticoagulation given second episode of PE. The c diff colitis might have been a contributing factor Subjective: cc- c diff, PE, anticoagulation hematochezia anemia pt feeling OK today less abdo pain still with loose stools and blood in stools no SOB no CP Objective: Vital Signs Temp Pulse Resp BP Pulse Ox 37.1 C 92 14 109/74 95 07/07/18 12:00 07/07/18 12:00 07/07/18 12:00 07/07/18 12:00 07/07/18 12:00 Microbiology 07/06/18 13:00 Gastrointestinal Tract Panel (PCR) - Final Stool Clostridium Difficile Detected Laboratory Results 07/07/18 05:20 07/07/18 05:20 07/06/18 07/07/18 07/08/18 05:59 05:59 05:59 Intake Total 3315 3520 Output Total 100 Balance 3215 3520 PT 14.5 SEC (12.0-15.0) 07/06/18 16:35 INR 1.18 (0.83-1.16) H 07/06/18 16:35 A+Ox3 CTA S1S2, RRR +BS soft mild left sided discomfort no r/g Laboratory Tests 07/06/18 07/06/18 07/06/18 01:45 16:35 22:30 Hgb 12.5 L 12.3 L 11.2 L Hct 36.2 L 36.5 L 32.1 L 07/07/18 05:20 Hgb 10.9 L Hct 32.2 L ICD10 Worksheet Patient Problems: Problems Problem Status Onset Elevated lipase Acute GIB (gastrointestinal bleeding) Acute Hypotension Acute Pulmonary emboli Acute
[2018-07-07] MEDS: ACETAMINOPHEN 325 MG TAB PO PRN (21:35)
[2018-07-08] MEDS: HEPARIN/DEXTROSE 500 ML IV SCH (02:36)
[2018-07-08] MEDS: VANCOMYCIN 125 MG/2.5 ML UDL PO SCH ×4 (05:39→21:02)
[2018-07-08] MEDS ORDERED: POTASSIUM CL 10 MEQ TAB PO ONE (08:15)
[2018-07-08] MEDS: PROPRANOLOL SR 60 MG CAP PO SCH (08:38)
[2018-07-08] MEDS: clonazePAM 1 MG TAB PO SCH ×2 (08:38→21:02)
[2018-07-08] MEDS: PANTOPRAZOLE SODIUM 40 MG TAB PO SCH (08:39)
--- NOTE | 2018-07-08 09:22 | SOAPPROG ---
SOAP Progress Note Assessment/Plan: Assessment/plan: * Acute pulmonary embolus-2nd episode 1st occurring in 2012. -continue heparin -she will require long-term anticoagulation -recommend follow-up with maintenance supervisor in [place] where she lives -hypercoagulable workup pending * Clostridium difficile -continue antibiotics * GI bleed * History of anxiety and tremor * VT prophylaxis * Stress ulcer prophylaxis * Nutrition-tolerating orals Subjective: Resting comfortably. Objective: Vital Signs Temp Pulse Resp BP Pulse Ox 36.8 C 78 17 100/68 95 07/08/18 08:00 07/08/18 08:00 07/08/18 08:00 07/08/18 08:00 07/08/18 08:00 Laboratory Results 07/08/18 05:20 07/08/18 05:20 07/07/18 07/08/18 07/09/18 05:59 05:59 05:59 Intake Total 3520 3168 Balance 3520 3168 PT 14.5 SEC (12.0-15.0) 07/06/18 16:35 INR 1.18 (0.83-1.16) H 07/06/18 16:35 - Time Spent With Patient Time Spent With Patient: 25 min of time spent with patient, over 1/2 involved coordination of care or counseling. Case discussed with nursing Physical Exam - Physical Exam General Appearance: WD/WN, alert, no apparent distress EENT: PERRL/EOMI Neck: non-tender Respiratory: chest non-tender, lungs clear, normal breath sounds Cardiac/Chest: normal peripheral pulses, regular rate, rhythm Abdomen: non-tender, soft, No normal bowel sounds (Hyperactive) Pelvic Exam: deferred Rectal: deferred Extremities: normal range of motion, non-tender, normal inspection, normal capillary refill Neuro/Psych: no motor/sensory deficits, alert, normal mood/affect, oriented x 3 ICD10 Worksheet Patient Problems: Problems Problem Status Onset Elevated lipase Acute GIB (gastrointestinal bleeding) Acute Hypotension Acute Pulmonary emboli Acute
--- NOTE | 2018-07-08 09:58 | HOSPPROG ---
Hospitalist Progress Note Assessment/Plan: 43 yo F w/ hx of PE and movement d/o NOS [place] [employer] [facility] in setting of diarrhea. Found to have PE. #C diff colitis: cont po vanc #GIB: likely 2/2 above. Discussed with GI, Dr. Arenas, who also considered ischemic colitis in setting of syncope. H&H remains stable. - cont to trend h&h - defer inpt scopes given active c diff - if e/o ongoing blood loss / active bleeding, will reconsider scope - outpt scope if no indication for urgent intervention here #RLL segmental PE: Hemodynamically stable today, no hypoxemia. This is recurrent. Prior PE in 2014 while on OCP, anticoagulated x1 yr. - will transition off heparin today, start bid lovenox 1 mg/kg - likely start eliquis in am if no bleeding #ABLA: home on oral iron #Syncope: c/w vasovagal response to gi bleed vs PE #Hypotension: Vagal and blood loss. Now normotensive. #Elevated troponin: Mild, likely demand from hypotension. Recheck was nl. #Leukocytosis: likely 2/2 c diff, wbc's trending down #Acute metabolic encephalopathy: Resolved. #Elevated lipase: likely related to c diff #Anxiety: cont home clonazepam. #Tremor: cont home BB #Movement d/o NOS Diet - cont clears, advance as tolerated Code - Full Ppx - SCDs, pharm c/i with GIB Dispo - cont inpt, home in 1-2 days Subjective: Pt feels a little better this am. Says she was up q1-2 hrs overnight with ongoing diarrhea, but this am seems to have subsided a bit. No fevers/chills. Has some "pink tinged stool" per RN, but no amaya blood. Tolerating solid foods better. No CP or SOB. No dizziness. Objective: Vital Signs Temp Pulse Resp BP Pulse Ox 36.8 C 78 17 100/68 95 07/08/18 08:00 07/08/18 08:00 07/08/18 08:00 07/08/18 08:00 07/08/18 08:00 Laboratory Results 07/08/18 05:20 07/08/18 05:20 07/07/18 07/08/18 07/09/18 05:59 05:59 05:59 Intake Total 3520 3168 Balance 3520 3168 PT 14.5 SEC (12.0-15.0) 07/06/18 16:35 INR 1.18 (0.83-1.16) H 07/06/18 16:35 - Physical Exam Constitutional: no apparent distress Eyes: PERRL Ears, Nose, Mouth, Throat: moist mucous membranes Cardiovascular: regular rate and rhythym Respiratory: no respiratory distress, clear to auscultation Gastrointestinal: normoactive bowel sounds, soft, non-tender abdomen Skin: warm Musculoskeletal: full muscle strength Neurologic: AAOx3 Psychiatric: interacting appropriately ICD10 Worksheet Patient Problems: Problems Problem Status Onset Elevated lipase Acute GIB (gastrointestinal bleeding) Acute Hypotension Acute Pulmonary emboli Acute
[2018-07-08] MEDS: ENOXAPARIN 80 MG/0.8 ML SYR SC SCH ×2 (11:01→21:02)
--- NOTE | 2018-07-08 14:49 | SOAPPROG ---
MERY Progress Note Assessment/Plan: Assessment:Plan: see full dictated consult rom earlier today pt now with positive c diff pulm embolus needing anti-coagulation spoke with Dr Araya, OK for heparin will hold on colon prep given c diff Victor Manuel Arenas MD [phone] 07/06/18 15:56 07/07/18 14:23 1) C diff - on oral vanco 125 qid 2) Abdo pain - less today, I suspect her LUQ pain was from ischemic colitis 3) hematochezia - expect some given c diff and prob ischemic colitis - follow Hb /HCt later today. If sig drop I may hold heparin and consider scope 4) anticoagulation - OK for heparin for now. no long acting agent today. IF Hb stable then maybe start tomorrow 5) scopes - will need colonoscopy/egd but if stable this can be done as outpt. 6) Pulm Embolus - will prob need fdc anticoagulation given second episode of PE. The c diff colitis might have been a contributing factor 07/08/18 14:45 as above 1) C diff - on PO vanco with improvement in stool frequency and less blood 2) Abdo pain - much improved, I suspect her LUQ pain was from ischemic colitis 3) hematochezia - lessening - I think major portion was from ischemic colitis and some from c diff colitis 4) scopes - as outpt when more stable. 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 Can policy change clerk to long acting agent - she did have difficulty with coumadin in the past - too high and too low of INR 6) anemia - stable HB, up a bit from [place]. will need MVI and iron as outpt will sign off for now recall if needed Subjective: cc- Pulm Embolus, syncope, c diff, diarrhea hematochezia, anemia pt feeling better as [employer] works, no f/c/s/ no n/v less blood and less diarrhea Objective: Vital Signs Temp Pulse Resp BP Pulse Ox 36.6 C 79 22 H 108/70 94 07/08/18 11:06 07/08/18 11:06 07/08/18 11:06 07/08/18 11:06 07/08/18 11:06 Laboratory Results 07/08/18 05:20 07/08/18 05:20 07/07/18 07/08/18 07/09/18 05:59 05:59 05:59 Intake Total 3520 3168 Balance 3520 3168 PT 14.5 SEC (12.0-15.0) 07/06/18 16:35 INR 1.18 (0.83-1.16) H 07/06/18 16:35 A+Ox3 CTA S1S2 +BS soft minimal tenderness to deep palpation no r/g Laboratory Tests 07/06/18 07/07/18 07/07/18 22:30 05:20 16:30 Hgb 11.2 L 10.9 L 10.8 L Hct 32.1 L 32.2 L 31.5 L 07/08/18 05:20 Hgb 11.1 L Hct 32.0 L ICD10 Worksheet Patient Problems: Problems Problem Status Onset Elevated lipase Acute GIB (gastrointestinal bleeding) Acute Hypotension Acute Pulmonary emboli Acute
--- NOTE | 2018-07-08 16:07 | ASMTCMCOM ---
CM Note CM Note Notes: Patient continuing ABX for CDIFF. Patient had some diarrhea overnight but overall improving. Tolerating solid foods, no fever, no chills, no dizziness. D/C plan remains independent, return to [facility] where she lives. CM available if D/C needs arise. Date Signed: 07/08/2018 04:06 PM Electronically Signed By:Celestina Gregory LCSW
[2018-07-09] MEDS: VANCOMYCIN 125 MG/2.5 ML UDL PO SCH ×4 (06:34→21:10)
[2018-07-09] MEDS ORDERED: POTASSIUM CL 10 MEQ TAB PO ONE (07:35)
[2018-07-09] MEDS: PROPRANOLOL SR 60 MG CAP PO SCH (09:17)
[2018-07-09] MEDS: clonazePAM 1 MG TAB PO SCH ×2 (09:17→21:10)
[2018-07-09] MEDS: PANTOPRAZOLE SODIUM 40 MG TAB PO SCH (09:17)
[2018-07-09] MEDS: APIXABAN 5 MG TAB PO SCH ×2 (09:18→21:12)
--- NOTE | 2018-07-09 12:21 | ASMTDCNOTE ---
Case Management Discharge Discharge Order Complete? Answers: Yes Patient to Obtain Answers: Independently Medications Transportation Arranged Answers: Family/Friends Family Notified Answers: Yes Notes: , Chrisopher Discharge Comments Notes: Patient is discharging independently to her home in [place], [place] today. No further needs. Date Signed: 07/09/2018 12:20 PM Electronically Signed By:Celestina Gregory LCSW
--- NOTE | 2018-07-09 12:26 | ASDISCHSUM ---
Discharge Information Plan Status:Home with No Needs Medically Cleared to Leave:07/09/2018 Discharge Date:07/09/2018 CM D/C Disposition:Home, Routine, Self-Care ADT D/C Disposition:Home, Routine, Self-Care Projected Discharge Date:07/09/2018 12:00 AM Transportation at D/C:Family Discharge Delay Reason: Follow-Up Date:07/09/2018 12:00 AM Discharge Slot:2 - 12:01 pm - 18:00 pm Final Diagnosis:GIB. pulmonary embolism, hypotension, elevated lipase Placement Information Patient Contact Information Contact Name:LISBET Relationship:Daughter Address: [address] Work Phone: City:[place] Alternate Phone: [facility]/Zip Code:[place] [address] Email: Financial Information Financial Class:Medicare Primary Plan Desc:MEDICARE INPATIENT Primary Plan Number:[id number] Secondary Plan Desc: Secondary Plan Number: Assessment Information LACE LACE Length of stay for Answers: 2 days current admission Acuity / Level of Answers: Yes Care: Did the patient have an inpatient admission? Comorbidities - select Answers: Other Notes: PE all that apply # of Emergency department Answers: 1-2 visits in the last 6 months Social determinants Answers: Mental health diagnosis (anxiety, depression, pers onality disorders, etc.) Score: 10 Date Signed: 07/09/2018 12:23 PM Electronically Signed By:Celestina Gregory LCSW [facility] CM Progress Note CM Note CM Note Notes: Reviewed chart, pt [place] hospital [place]. Pt seems to be having rectal bleeding, plan is for EGD/colonoscopy tommorrow. Pt lives at home with in [place], no theraies ordered, CM w/f. DC Plan: TBD Date Signed: 07/06/2018 04:01 PM Electronically Signed By:Donita Cannon RN [facility] CM Progress Note CM Note CM Note Notes: Patient continuing ABX for CDIFF. Patient had some diarrhea overnight but overall improving. Tolerating solid foods, no fever, no chills, no dizziness. D/C plan remains independent, return to [facility] where she lives. CM available if D/C needs arise. Date Signed: 07/08/2018 04:06 PM Electronically Signed By:Celestina Gregory LCSW Case Management Discharge Plan Note Case Management Discharge Discharge Order Complete? Answers: Yes Patient to Obtain Answers: Independently Medications Transportation Arranged Answers: Family/Friends Family Notified Answers: Yes Notes: Mark Discharge Comments Notes: Patient is discharging independently to her home in [place], [place] today. No further needs. Date Signed: 07/09/2018 12:20 PM Electronically Signed By:Celestina Gregory LCSW Intervention Information Intervention Type:*Incorrect Registration Date of Service:07/06/2018 07:32 AM Patient Type:Inpatient Staff Member:Silvia Mcnamara Hours: Discipline: Severity: Comment:
--- NOTE | 2018-07-09 16:16 | HOSPPROG ---
Hospitalist Progress Note Assessment/Plan: 43 yo F w/ hx of PE and movement d/o NOS [place] [employer] [facility] in setting of diarrhea. Found to have PE. #C diff colitis: cont po vanc #GIB: likely 2/2 above. Discussed with GI, Dr. Arenas, who also considered ischemic colitis in setting of syncope. H&H remains stable. - cont to trend h&h - defer inpt scopes given active c diff - if e/o ongoing blood loss / active bleeding, will reconsider scope - outpt scope if no indication for urgent intervention here #RLL segmental PE: Hemodynamically stable today, no hypoxemia. This is recurrent. Prior PE in 2014 while on OCP, anticoagulated x1 yr. - will transition off heparin today, start bid lovenox 1 mg/kg - likely start eliquis in am if no bleeding #ABLA: home on oral iron #Syncope: c/w vasovagal response to gi bleed vs PE #Hypotension: Vagal and blood loss. Now normotensive. #Elevated troponin: Mild, likely demand from hypotension. Recheck was nl. #Leukocytosis: likely 2/2 c diff, wbc's trending down #Acute metabolic encephalopathy: Resolved. #Elevated lipase: likely related to c diff #Anxiety: cont home clonazepam. #Tremor: cont home BB #Movement d/o NOS Diet - cont clears, advance as tolerated Code - Full Ppx - SCDs, pharm c/i with GIB Dispo - cont inpt, home in 1-2 days Subjective: Pt feels better. Still somewhat frequent stools, but overall improving with less frequency. No BRBPR, some pink tinge is noted. No N/V. No abdominal pain. Appetite is much improved. No fevers/chills. No CP or SOB. She is on room air. Objective: Vital Signs Temp Pulse Resp BP Pulse Ox 36.9 C 74 20 126/78 H 96 07/09/18 16:00 07/09/18 16:00 07/09/18 16:00 07/09/18 16:00 07/09/18 16:00 Laboratory Results 07/08/18 05:20 07/09/18 05:00 07/08/18 07/09/18 07/10/18 05:59 05:59 05:59 Intake Total 3168 600 Balance 3168 600 PT 14.5 SEC (12.0-15.0) 07/06/18 16:35 INR 1.18 (0.83-1.16) H 07/06/18 16:35 - Physical Exam Constitutional: no apparent distress Eyes: PERRL Ears, Nose, Mouth, Throat: moist mucous membranes Cardiovascular: regular rate and rhythym, no murmur, rub, or gallop Respiratory: no respiratory distress, clear to auscultation Gastrointestinal: normoactive bowel sounds, soft, non-tender abdomen Skin: warm Musculoskeletal: full muscle strength Neurologic: AAOx3 Psychiatric: interacting appropriately ICD10 Worksheet Patient Problems: Problems Problem Status Onset Elevated lipase Acute GIB (gastrointestinal bleeding) Acute Hypotension Acute Pulmonary emboli Acute
--- NOTE | 2018-07-09 20:01 | GDS ---
[f rep st] DISCHARGE SUMMARY DISCHARGE DIAGNOSES: 1. Syncope. 2. Right lower lobe pulmonary embolism. 3. Clostridium difficile colitis. 4. Gastrointestinal bleed, likely secondary to Clostridium difficile colitis and possibly some ische luisa colitis in the setting of syncope and possible hypoperfusion. 5. Acute blood loss anemia. 6. Metabolic encephalopathy, resolved. CONSULTANTS: 1. Dr. Victor Manuel Arenas, gastroenterology. 2. Dr. Carlos Roberts, pulmonology. HISTORY: For details, please see history and physical dated July 06, 2018. In brief, the patient is a 43-year-old female with history of previous pulmonary embolism in the setting of oral contraceptive pill, presented to the emergency department after a syncopal episode at [facility] [place] [facility] [place] of frequent loose bloody stools. Upon arrival, she was confused, though hemodynamically stable. She was admitted to the hospital for further evaluation. HOSPITAL COURSE: The patient was admitted to the ICU due to hypotension, syncope, and GI bleeding. She received volume resuscitation. GI workup ensued which revealed positive C difficile. She was st arted on oral vancomycin. A GI consult was obtained. Consideration was given to endoscopy; however, when she turned up with infectious diarrhea, colonoscopy was deferred in the inpatient setting. She did not have ongoing hematochezia or signs of rectal bleeding. Given her history of previous pulmon lino embolism in the setting of syncope, CT pulmonary angiogram was performed which revealed a segment al right lower lobe pulmonary embolism. She was started on a heparin drip and monitored for ongoing bleeding for 48 hours. Her hemoglobin remained stable around 11, and she was transitioned to Lovenox . On the day of discharge, Lovenox was discontinued in favor of oral Eliquis. She remained hemodyna mically stable. Her diarrhea has improved. Hypercoagulable workup was sent, and it is noted she has low protein C and antithrombin III levels. I recommend she have outpatient followup with Hematology , but I advised her she will likely need lifelong anticoagulation given recurrent pulmonary embolism. DISPOSITION: Patient is discharged home in stable condition. FOLLOWUP: 1. Primary care doctor, Funmi Dick at [facility] in [place]. 2. Gastroenterology in [place] for outpatient scope. 3. Hematology in [place] for followup on her low protein C and low antithrombin III levels. DISCHARGE MEDICATIONS: Please see [facility] for completed medication list Medications on discharge include: Vancomycin 125 mg p.o. q.i.d. for 10 days, no refills. Eliquis 10 mg p.o. b.i.d. for 5 more days, then 5 mg p.o. b.i.d., #65, no refills. She will continue all other outpatient medications as previously prescribed. Copy requested to: [facility] [place], [place] /[id number]/MODL
[2018-07-10] MEDS: VANCOMYCIN 125 MG/2.5 ML UDL PO SCH (05:04)
[2018-07-10 07:34] VITALS: BP 104/77
[2018-07-10] MEDS: PANTOPRAZOLE SODIUM 40 MG TAB PO SCH (08:28)
[2018-07-10] MEDS: APIXABAN 5 MG TAB PO SCH (08:29)
[2018-07-10] MEDS: clonazePAM 1 MG TAB PO SCH (08:29)
[2018-07-10] MEDS: PROPRANOLOL SR 60 MG CAP PO SCH (08:29)
[2018-07-10] MEDS ORDERED: POTASSIUM CL 10 MEQ TAB PO ONE (09:10)
--- NOTE | 2018-07-10 16:54 | PDDCSUM ---
Discharge Summary Discharge Summary: Please see DC Summary from yesterday 07/10/2018. The only change made is her vancomycin dose was increased to 250 mg QID. She has otherwise remained stable and continues to slowly improve from her C diff infection. No more blood in the stool, tolerating Eliquis. She will follow up with PCP, Hematology and GI in .
== END 2018-07-10 11:30 | disposition home or self-care (01) | DRG 371 ==
LOC: OBSVTOIN 07-06 02:20 → F2N 07-06 02:55
PROVIDERS: ADMIT Student in an Organized Health Care Education/Training Program; ATTEND Student in an Organized Health Care Education/Training Program
DX: A04.72 Enterocolitis due to Clostridium difficile, not specified as recurrent (principal); I26.99 Other pulmonary embolism without acute cor pulmonale; G93.41 Metabolic encephalopathy; D62 Acute posthemorrhagic anemia; K92.2 Gastrointestinal hemorrhage, unspecified; E86.9 Volume depletion, unspecified; F41.9 Anxiety disorder, unspecified; R25.1 Tremor, unspecified; Z87.891 Personal history of nicotine dependence; Z86.711 Personal history of pulmonary embolism
CPT/HCPCS: 84484-ER; 85300-90; 85303-90; 85306-90; 85520-90; 86147-90; 96374; G0480; J1644; J1650; J2405; Q9967